=== PATIENT | male | born 1955 | race Caucasian/White ===

== ENCOUNTER → 2016-11-07 | Outpatient (CLI) | payer BC ==
[2016-11-07 10:04] LABS: ALT/SGPT 31 U/L (12-78); AST/SGOT 22 U/L (15-37)
== END | disposition home or self-care (01) ==
LOC: C.LAB 07:41
DX: E78.5 Hyperlipidemia, unspecified (principal)

== ENCOUNTER → 2017-06-23 | Outpatient (CLI) | payer BC ==
[2017-06-23 14:00] LABS: BLOOD UREA NITROGEN 10 mg/dl (7-18)
== END | disposition home or self-care (01) ==
LOC: C.LAB1850 12:16
PROVIDERS: ATTEND Urology
DX: R97.20 Elevated prostate specific antigen [PSA] (principal)